=== PATIENT | male | born 1970 | race African-American/Black ===

== ENCOUNTER 2020-12-11 09:21 | Emergency (ER) | payer OTHER ==
[~2020-12-11] VITALS: Ht 188 cm; Wt 124.7 kg
[2020-12-11 09:39] VITALS: BP 128/95
[2020-12-11] MEDS ORDERED: traMADol HCL 50 MG TAB PO ONE (10:45)
[2020-12-11] MEDS ORDERED: methylPREDNISolone SOD SUCC 125 MG/2 ML VL IM ONE (10:45)
== END 2020-12-11 11:20 | disposition home or self-care (01) ==
LOC: ER 09:21
DX: M75.32 Calcific tendinitis of left shoulder (principal); M25.512 Pain in left shoulder
CPT/HCPCS: 73030; 96372; 99283; J2930